=== PATIENT | female | born 1960 | race Caucasian/White ===

== ENCOUNTER → 2017-11-28 | Outpatient (CLI) | payer BC ==
[2017-11-28] MEDS: IOHEXOL 240 MG/ML 50ML VIAL. PO (12:22)
== END | disposition home or self-care (01) ==
LOC: KCIC CT 10:58
DX: K57.30 Diverticulosis of large intestine without perforation or abscess without bleeding (principal); M47.896 Other spondylosis, lumbar region; N20.1 Calculus of ureter
CPT/HCPCS: 74176; Q9966

== ENCOUNTER → 2019-11-13 | Outpatient (CLI) | payer BC ==
[~2019-11-13] MED LIST: BUPR100T7 PO; CITA10TA8 PO
--- NOTE | 2019-11-13 15:54 | KCIC ---
Bilateral digital screening mammograms: Reason for examination: Routine screening. New baseline. Interpretation was made with the benefit of CAD. The skin and nipples show no abnormalities. No abnormal axillary lymph nodes are seen. The breast parenchyma shows scattered fibroglandular density. (Breast density: Category B.) There are small circumscribed nodules probably representing intramammary lymph nodes bilaterally. There are no other dominant masses, suspicious calcifications or architectural distortions. Impression: No evidence of malignancy. Recommend routine screening. BI-RADS Category 2: Benign. "Our facility is accredited by the [employer] Mammography Program." This patient's information has been entered into a reminder system for the patient to be notified with the results of her examination and a target date for the next mammogram. Electronically signed by: Mag Gil MD (11/13/2019 3:51 PM) [id number]
== END | disposition home or self-care (01) ==
LOC: KCIC MAMMO 14:03
PROVIDERS: ATTEND Family Medicine
DX: Z12.31 Encounter for screening mammogram for malignant neoplasm of breast (principal)
CPT/HCPCS: 77067